=== PATIENT | male | born 1995 | race African-American/Black ===

== ENCOUNTER 2021-07-08 17:49 | Emergency (ER) | payer SELFPAY ==
[2021-07-08] MEDS ORDERED: KETOROLAC TROMETHAMINE 30 MG/1 ML VIAL IM ONE (18:05)
[2021-07-08] MEDS ORDERED: LIDOCAINE 5% TOPICAL PATCH TP ONE (18:05)
[2021-07-08] MEDS ORDERED: CYCLOBENZAPRINE HCL 10 MG TABLET (FP) PO ONE (18:05)
[2021-07-08 18:20] VITALS: BP 119/85; PULSE 56; TEMP 99; BMI 28.8
[2021-07-08] MEDS ORDERED: LIDOCAINE 5% TOPICAL PATCH ONE (18:28)
[2021-07-08] MEDS ORDERED: KETOROLAC TROMETHAMINE 30 MG/1 ML VIAL ONE (18:28)
[2021-07-08] MEDS ORDERED: CYCLOBENZAPRINE HCL 5 MG TABLET ONE (18:28)
[2021-07-08] MEDS ORDERED: LIDOCAINE PATCH REMOVAL MC SCH (22:00)
== END 2021-07-08 20:02 | disposition home or self-care (01) ==
LOC: FER 17:49
PROC: 3E0233Z Introduction of Anti-inflammatory into Muscle, Percutaneous Approach (ICD-10-PCS; principal; 2021-07-08)
DX: S16.1XXA Strain of muscle, fascia and tendon at neck level, initial encounter (principal); X50.0XXA Overexertion from strenuous movement or load, initial encounter
CPT/HCPCS: 99284-25